=== PATIENT | male | born 1995 | race Caucasian/White ===

== ENCOUNTER 2021-06-18 07:10 | Emergency (ER) | payer OTHER ==
[~2021-06-18] VITALS: Ht 170.2 cm; Wt 59.0 kg
[2021-06-18 07:14] VITALS: BP 118/72
--- NOTE | 2021-06-18 07:16 | NUR ---
25 Y/O M AMBULATED TO BED 4, C/O MIGRAINE GARCIA X1 WEEK GETTING WORSE EVEN AFTER TAKING OTC MEDS AND PRESCRIBED MEDS. PMH: MIGRANES, EXTRA VEIN IN HEAD NKDA
--- NOTE | 2021-06-18 07:17 | NUR ---
DR RAYA AT BEDSIDE FOR MSE
[2021-06-18] MEDS ORDERED: KETOROLAC 30 MG/ML VIAL IVP ONE (07:20)
[2021-06-18] MEDS ORDERED: PROCHLORPERAZINE 10 MG/2 ML VIAL IVP ONE (07:20)
[2021-06-18] MEDS ORDERED: diphenhydrAMINE 50 MG/ML VIAL IVP ONE (07:20)
[2021-06-18] MEDS ORDERED: methylPREDNISolone SS 125 MG/2 ML VIAL IVP ONE (07:20)
--- NOTE | 2021-06-18 08:33 | NUR ---
DR RAYA AT BEDSIDE FOR RE-EVAL
[2021-06-18 08:40] VITALS: BP 107/71
--- NOTE | 2021-06-18 08:40 | NUR ---
Patient discharged with v/s stable. Written and verbal after care instructions given and explained. Patient verbalized understanding. Ambulatory with steady gait. All questions addressed prior to discharge. Advised to follow up with PMD.
== END 2021-06-18 08:40 | disposition home or self-care (01) ==
LOC: MED 07:10
DX: R51.9 Headache, unspecified (principal)
CPT/HCPCS: 96374; 96375; 99284; J0780; J1200; J1885; J2930